=== PATIENT | male | born 1985 | race Caucasian/White ===

== ENCOUNTER 2017-10-13 16:54 | Emergency (ER) | payer BC ==
--- NOTE | 2017-10-13 17:12 | ED Physician Documentation ---
Upper Extremity Injury - HISTORIAN Historian: patient - HPI Stated Complaint: hand pain Chief Complaint: Hand Injury Onset: yesterday (morning) Context: other (punched a wall. ) Modifying Factors: none (no meds taken, no ice) Further Comments: yes (patient at [facility]) - ROS CONST: no problems - PAST HX Past History: other (bipolar) Allergies/Adverse Reactions: Allergies Allergy/AdvReac Type Severity Reaction Status Date / Time cefaclor [From Ceclor] Allergy Intermediate Hives Verified 10/13/17 17:12 Home Medications: Ambulatory Orders Medication Instructions Recorded Brexpiprazole [Rexulti] 1 mg PO D 10/13/17 Hydroxyzine Pamoate [Vistaril] 25 mg PO DIRECTED 10/13/17 Lisinopril [Zestril] 10 mg PO D 10/13/17 Ranitidine HCl [Ranitidine HCl] 150 mg PO BID 10/13/17 - SOCIAL HX Smoking History: cigarettes - FAMILY HX Family History: no significant history - VITAL SIGNS Vital Signs: Vital Signs Temp Pulse Resp BP Pulse Ox 98.7 F 109 H 16 132/89 97 10/13/17 16:55 10/13/17 16:55 10/13/17 16:55 10/13/17 16:55 10/13/17 16:55 - REVIEWED ASSESSMENTS Nursing Assessment Reviewed: Yes Vitals Reviewed: Yes Progress - Progress Progress: Patient Study Name: PINO KERN Date: Oct 13, 2017 5:55:47 PM CDT Modality Type: DX Gender: M Description: UPPER EXTREMITY : 81 Institution: [facility] Physician: MARIA GUADALUPE BAE - ER 3 views of the right hand History: right hand hit wall on 10-12-2017 (Hx) / ITS.REASON punched wall No comparison studies No evidence of acute fracture or dislocation of the right hand. Joint spaces are preserved. Impression: No evidence of acute fracture or dislocation of the right hand Electronically signed on Oct 13, 2017 6:12:34 PM CDT by: Jaja Shabazz ED Results Lab/Radiology - Orders Orders: ED Orders Category Date Time Status HAND 3 VIEWS OR MORE [RAD] Stat Exams 10/13/17 Taken Upper Extremity Injury Physic - Physical Exam General Appearance: anxious Hand: swelling (5th metacarpal) Wrist: normal inspection (right radial pulse 2+) Elbow/Forearm: normal inspection, no evidence of injury Shoulder: normal inspection, no evidence of injury Neuro/Vascular/Tendon: no vascular compromise, motor nml, sensation nml Skin: warm,dry Head/ENT: nml inspection Neck/Back: nml inspection Resp/CVS: no resp. distress Discharge Clincal Impression: Contusion of hand Qualifiers: Encounter type: initial encounter Laterality: right Qualified Code(s): S60.221A - Contusion of right hand, initial encounter Referrals: Primary Doctor,No [Primary Care Provider] - 2 Days Additional Instructions: Ice to the sore area for 30 minutes of each hour you are awake for 4 days. Condition: Good Disposition: 01 HOME, SELF-CARE Decision to Admit: NO Decision Time: 18:15
--- NOTE | 2017-10-13 18:15 | Diagnostic Imaging Report ---
MARIA GUADALUPE BAE [facility] [address] [facility] [address] [place] [address]. [id number] Report Submission Date: Oct 13, 2017 6:12:34 PM CDT Patient Study Name: PINO KERN Date: Oct 13, 2017 5:55:47 PM CDT Modality Type: DX Gender: M Description: UPPER EXTREMITY : 81 Institution: [facility] Physician: MARIA GUADALUPE BAE 3 views of the right hand History: right hand hit wall on 10-12-2017 (Hx) / ITS.REASON punched wall No comparison studies No evidence of acute fracture or dislocation of the right hand. Joint spaces are preserved. Impression: No evidence of acute fracture or dislocation of the right hand Electronically signed on Oct 13, 2017 6:12:34 PM CDT by: Jaja PHILLIPS
[2017-10-13 18:27] VITALS: BP 135/88
== END 2017-10-13 18:20 | disposition home or self-care (01) ==
LOC: ED 16:54
DX: S60.221A Contusion of right hand, initial encounter (principal); W22.8XXA Striking against or struck by other objects, initial encounter; Y92.9 Unspecified place or not applicable
CPT/HCPCS: 73130